=== PATIENT | female | born 1965 | race Caucasian/White ===

== ENCOUNTER 2019-11-05 20:30 | Inpatient (IN) | payer BC ==
[~2019-11-05] VITALS: Ht 175.3 cm; Wt 83.6 kg
[~2019-11-05 20:30] MED LIST: AMIT50TA PO; CARV25TA2 PO; DOCU-109 PO; Oxycodone Hcl/Acetaminophen PO; TRAM-48 PO; [UNRECOGNIZED DRUG - REMARK]; benicar; topamax
[2019-11-05 20:35] VITALS: BP 188/100
[2019-11-05] MEDS ORDERED: LOSA25TA54 PO (21:23)
--- NOTE | 2019-11-05 21:30 | NUR ---
Pt was transferred from [place] with c/o RUE weakness and dysphagia. Pt stated having hallucinations s/p colonoscopy yesterday, hallucinations stopped but pt is still having problems with speak and RUE weakness. Pt is A/Ox4, SR on telemetry, VSS, up SBA, gait unsteady, told pt to use call light when needing restroom. H&P completed, pts home medications restarted, spoke with admitting physician, Dr. Glez, orders received. Call light within reach, bed in low/locked position, will continue to monitor.
[2019-11-05] MEDS ORDERED: HYDR20VI5 IJ (21:33)
[2019-11-05] MEDS ORDERED: 0.9 % SODIUM CHLORIDE 10 ML DISP.SYRIN. IV PRN (21:45)
[2019-11-05] MEDS ORDERED: ONDANSETRON PF 4 MG/2 ML VIAL. IVP PRN (21:45)
[2019-11-05] MEDS: IV NORMAL SALINE 1000ML BAG 1,000 ML IV SCH (22:00)
[2019-11-05] MEDS: AMITRIPTYLINE HCL 25 MG TABLET. PO SCH (22:08)
[2019-11-05] MEDS: LOSARTAN POTASSIUM 25 MG TABLET. PO SCH (22:09)
[2019-11-05] MEDS: traMADol 50 MG TABLET PO PRN (22:10)
[2019-11-05 23:00] VITALS: BP 152/98
[2019-11-06 03:00] VITALS: BP 146/92
[2019-11-06 04:26] LABS: BASO % 1 % (0-3); EOS # 0.1 x10^3/uL (0.0-0.7); EOS % 4 % (0-3); HEMATOCRIT 33.9 % (36.0-47.0); HEMOGLOBIN 12.2 g/dL (12.0-15.5); LYMPH # 0.8 x10^3/uL (1.0-4.8); LYMPH % 28 % (24-48); MEAN CORPUSCULAR HEMOGLOBIN 30 pg (25-35); MEAN CORPUSCULAR HGB CONC 36 g/dL (31-37); MEAN CORPUSCULAR VOLUME 83 fL (79-100); MONO # 0.3 x10^3/uL (0.0-1.1); MONO % 9 % (0-9); NEUT # 1.7 x10^3/uL (1.8-7.7); NEUT % 59 % (31-73); PLATELET COUNT 80 x10^3/uL (140-400); RED BLOOD COUNT 4.06 x10^6/uL (3.50-5.40); RED CELL DISTRIBUTION WIDTH 14.6 % (11.5-14.5); WHITE BLOOD COUNT 2.9 x10^3/uL (4.0-11.0)
[2019-11-06 04:49] LABS: ALBUMIN 3.3 g/dL (3.4-5.0); ALBUMIN/GLOBULIN RATIO 0.8 (1.0-1.7); CALCIUM 8.6 mg/dL (8.5-10.1); GFR 57.4; POTASSIUM 3.4 mmol/L (3.5-5.1); TOTAL BILIRUBIN 0.7 mg/dL (0.2-1.0); TOTAL PROTEIN 7.6 g/dL (6.4-8.2)
[2019-11-06 07:00] VITALS: BP 134/85
[2019-11-06] MEDS: IV NORMAL SALINE 1000ML BAG 1,000 ML IV SCH (08:00)
[2019-11-06] MEDS: traMADol 50 MG TABLET PO PRN ×2 (08:18→21:45)
[2019-11-06] MEDS ORDERED: ASPIRIN RECTAL 300 MG SUPP. PR PRN (09:00)
[2019-11-06] MEDS ORDERED: ACETAMINOPHEN 650 MG SUPP.RECT. PR PRN (09:00)
[2019-11-06] MEDS ORDERED: LOSARTAN POTASSIUM 25 MG TABLET. PO SCH (09:00)
[2019-11-06] MEDS ORDERED: ACETAMINOPHEN 325 MG TABLET. PO PRN (09:00)
[2019-11-06] MEDS: ASPIRIN ENTERIC COATED 325 MG TABLET.DR. PO SCH (09:05)
[2019-11-06 11:00] VITALS: BP 128/89
--- NOTE | 2019-11-06 11:49 | PDOC2 ---
NEUROLOGY CONSULT Date of Admission Date of Admission DATE: 11/06/19 TIME: 11:42 Reason for Consult Reason for Consult: Altered mental status, possible stroke Referring Physician Referring Physician: Dr. Glez Source Source: Chart review, Patient History of Present Illness History of Present Illness The patient is a 54-year-old right-handed female who had a colonoscopy on 11/03 and when she gets home she did not feel right. She had some headaches and does have a history of migraines. She felt like she was seeing shades of green and blue and also having hallucinations. She felt like she had fevers and chills throughout the night. She woke up yesterday morning with right hemiparesis which is now getting better. She also had some more headache. There is no prior history of stroke, seizure, or head injury. Past Medical History Cardiovascular: HTN CENTRAL NERVOUS SYSTEM: Migraine Hepatobiliary: Cirrhosis, Hep A/B/C (C) Rheumatologic: Other (Lupus) Renal/: Other ( uterine prolapse) Past Surgical History Past Surgical History: Appendectomy Family History Family History: Cancer, CVA Social History Social History Single, quit using alcohol and tobacco, unemployed Current Medications Current Medications Current Medications Losartan Potassium (Cozaar) 25 mg DAILY PO ; Start 11/06/19 at 09:00; Stop 11/05/19 at 21:55; Status DC Tramadol HCl (Ultram) 50 mg PRN Q6HRS PRN PO MODERATE PAIN 4-6 Last administered on 11/06/19at 08:18; Start 11/05/19 at 21:45 Amitriptyline HCl (Elavil) 50 mg QHS PO Last administered on 11/05/19at 22:08; Start 11/05/19 at 22:00 Sodium Chloride (Normal Saline Flush) 3 ml PRN DAILY PRN IV AFTER MEDS AND BLOOD DRAWS; Start 11/05/19 at 21:45 Ondansetron HCl (Zofran) 4 mg PRN Q6HRS PRN IVP NAUSEA/VOMITING 1ST CHOICE; Start 11/05/19 at 21:45 Sodium Chloride 1,000 ml @ 100 mls/hr Q10H IV Last administered on 11/05/19at 22:00; Start 11/05/19 at 22:00; Stop 11/06/19 at 09:20; Status DC Losartan Potassium (Cozaar) 25 mg HS PO Last administered on 11/05/19at 22:09; Start 11/05/19 at 22:00 Acetaminophen (Tylenol) 650 mg PRN Q6HRS PRN PO TEMP > 100.4F; Start 11/06/19 at 09:00 Acetaminophen (Tylenol Supp) 650 mg PRN Q4HRS PRN DC TEMP > 100.4F; Start 11/06/19 at 09:00 Aspirin (Ecotrin) 325 mg DAILYWBKFT PO Last administered on 11/06/19at 09:05; Start 11/06/19 at 09:00 Aspirin (Aspirin Rectal Supp) 300 mg PRN DAILY PRN DC IF UNABLE TO TAKE PO; Start 11/06/19 at 09:00 Active Scripts Active Reported Hydralazine Hcl 20 Mg/1 Ml Vial 10 Mg IJ PRN Q4HRS PRN Losartan Potassium (Losartan Potassium) 25 Mg Tablet 25 Mg PO DAILY Ultram (Tramadol Hcl) 50 Mg Tablet 50 Mg PO Q6H PRN Amitriptyline Hcl 50 Mg Tablet 50 Mg PO QHS Allergies Allergies: Coded Allergies: No Known Drug Allergies (Unverified , 01/11/14) ROS Review of System Negative for fever, chills, weight loss, shortness of breath, chest pain, indigestion, hematochezia, melena, and dysuria. Full 14-point review of systems is negative. Physical Exam Physical Examination General: Well-developed, well-nourished white female in no acute distress HEENT: Normocephalic andatraumatic. Tympanic membranes clear.Temporal arteriespulsatile and nontender.Fundoscopic exam unremarkable Neck: Supple without bruit, no meningismus Musculoskeletal: Stability:see neurologic. Gait exam:see neurologic. Tone:see neurologic.Strength:see neurologic. Neurological: Mental Status:intact, orientation, memory, attention span/concentration, language, fund of knowledge normal. Cranial Nerves:Pupils equal and reactive to light, extraocular movements areintact, visual polo are full to confrontation. Facial sensation is normal. There is no facial asymmetry. Vestibulo-ocular reflex is intact. Palate elevates and tongue protrudes in midline. All other cranial related problems are negative except as mentioned before.Reflexes:2+ and symmetric with flexor plantar responses. Motor: Give way right arm weakness without pronator drift, 5/5 strength with normal tone and bulk. Coordination:Finger-nose finger and [id number] testing are normal. Rapid alternating movements and fine finger movements are intact. Gait:Normal, including tandem. Sensory:Normal pinprick, vibration, light touch, proprioception. Vitals VITALS Vital Signs Date Time Temp Pulse Resp B/P (MAP) Pulse Ox O2 Delivery O2 Flow Rate FiO2 11/06/19 08:00 Room Air 11/06/19 07:00 97.6 80 16 134/85 (101) 91 97.6 Labs Labs Laboratory Tests Test 11/06/19 03:45 White Blood Count 2.9 x10^3/uL (4.0-11.0) Red Blood Count 4.06 x10^6/uL (3.50-5.40) Hemoglobin 12.2 g/dL (12.0-15.5) Hematocrit 33.9 % (36.0-47.0) Mean Corpuscular Volume 83 fL (79-100) Mean Corpuscular Hemoglobin 30 pg (25-35) Mean Corpuscular Hemoglobin Concent 36 g/dL (31-37) Red Cell Distribution Width 14.6 % (11.5-14.5) Platelet Count 80 x10^3/uL (140-400) Neutrophils (%) (Auto) 59 % (31-73) Lymphocytes (%) (Auto) 28 % (24-48) Monocytes (%) (Auto) 9 % (0-9) Eosinophils (%) (Auto) 4 % (0-3) Basophils (%) (Auto) 1 % (0-3) Neutrophils # (Auto) 1.7 x10^3/uL (1.8-7.7) Lymphocytes # (Auto) 0.8 x10^3/uL (1.0-4.8) Monocytes # (Auto) 0.3 x10^3/uL (0.0-1.1) Eosinophils # (Auto) 0.1 x10^3/uL (0.0-0.7) Basophils # (Auto) 0.0 x10^3/uL (0.0-0.2) Sodium Level 140 mmol/L (136-145) Potassium Level 3.4 mmol/L (3.5-5.1) Chloride Level 104 mmol/L (98-107) Carbon Dioxide Level 25 mmol/L (21-32) Anion Gap 11 (6-14) Blood Urea Nitrogen 16 mg/dL (7-20) Creatinine 1.0 mg/dL (0.6-1.0) Estimated GFR (Cockcroft-Gault) 57.4 BUN/Creatinine Ratio 16 (6-20) Glucose Level 96 mg/dL (70-99) Calcium Level 8.6 mg/dL (8.5-10.1) Total Bilirubin 0.7 mg/dL (0.2-1.0) Aspartate Amino Transf (AST/SGOT) 27 U/L (15-37) Alanine Aminotransferase (ALT/SGPT) 15 U/L (14-59) Alkaline Phosphatase 88 U/L (46-116) Total Protein 7.6 g/dL (6.4-8.2) Albumin 3.3 g/dL (3.4-5.0) Albumin/Globulin Ratio 0.8 (1.0-1.7) Laboratory Tests Test 11/06/19 03:45 White Blood Count 2.9 x10^3/uL (4.0-11.0) Red Blood Count 4.06 x10^6/uL (3.50-5.40) Hemoglobin 12.2 g/dL (12.0-15.5) Hematocrit 33.9 % (36.0-47.0) Mean Corpuscular Volume 83 fL (79-100) Mean Corpuscular Hemoglobin 30 pg (25-35) Mean Corpuscular Hemoglobin Concent 36 g/dL (31-37) Red Cell Distribution Width 14.6 % (11.5-14.5) Platelet Count 80 x10^3/uL (140-400) Neutrophils (%) (Auto) 59 % (31-73) Lymphocytes (%) (Auto) 28 % (24-48) Monocytes (%) (Auto) 9 % (0-9) Eosinophils (%) (Auto) 4 % (0-3) Basophils (%) (Auto) 1 % (0-3) Neutrophils # (Auto) 1.7 x10^3/uL (1.8-7.7) Lymphocytes # (Auto) 0.8 x10^3/uL (1.0-4.8) Monocytes # (Auto) 0.3 x10^3/uL (0.0-1.1) Eosinophils # (Auto) 0.1 x10^3/uL (0.0-0.7) Basophils # (Auto) 0.0 x10^3/uL (0.0-0.2) Sodium Level 140 mmol/L (136-145) Potassium Level 3.4 mmol/L (3.5-5.1) Chloride Level 104 mmol/L (98-107) Carbon Dioxide Level 25 mmol/L (21-32) Anion Gap 11 (6-14) Blood Urea Nitrogen 16 mg/dL (7-20) Creatinine 1.0 mg/dL (0.6-1.0) Estimated GFR (Cockcroft-Gault) 57.4 BUN/Creatinine Ratio 16 (6-20) Glucose Level 96 mg/dL (70-99) Calcium Level 8.6 mg/dL (8.5-10.1) Total Bilirubin 0.7 mg/dL (0.2-1.0) Aspartate Amino Transf (AST/SGOT) 27 U/L (15-37) Alanine Aminotransferase (ALT/SGPT) 15 U/L (14-59) Alkaline Phosphatase 88 U/L (46-116) Total Protein 7.6 g/dL (6.4-8.2) Albumin 3.3 g/dL (3.4-5.0) Albumin/Globulin Ratio 0.8 (1.0-1.7) Images Images CT Head without IV contrast There is no evidence of hemorrhage, mass or extra-axial fluid collection. Peacock-white differentiation is maintained with no evidence of edema. There is no mass effect or shift of the intracranial structures. The ventricles, basilar cisterns and cortical sulci are normal in size and configuration for the patients stated age. The cerebellum and brainstem are unremarkable. The calvarium demonstrates no evidence of fracture or focal lesion. There is normal aeration of the visualized paranasal sinuses and mastoid air cells. The visualized portions of the orbits are normal. Atherosclerotic calcifications of the intracranial internal carotid arteries is seen. IMPRESSION: No evidence for acute intracranial process. Assessment/Plan Assessment/Plan Impression: Strange symptoms arising from disparate parts of the brain, visual symptoms, hallucinations, confusion, and then right-sided weakness, but on exam she has no facial involvement, no pronator drift, and gait is not consistent with any type of hemiparesis. I wonder about a reaction to the colonoscopy anesthesia on top of migraine phenomenon Recommendation: Stroke workup ordered including MRI of the brain, echocardiogram, carotid Doppler studies Aspirin Check lipids Rehabilitation screening Aim for discharge as soon as later today if tests are negative. Thank you for letting me help with the patient's care. RAPHAEL CASEY MD Nov 06, 2019 11:49
--- NOTE | 2019-11-06 12:12 | PDOC1 ---
History and Physical Date of Admission: Date of Admission DATE: 11/06/19 TIME: 12:09 Chief Complaint: Problems: (1) Closed fracture of surgical neck of humerus (2) Systemic lupus erythematosus Chief Complain: Stroke symptoms right-sided weakness slurred speech recent colonoscopy History of Present Illness: HPI: This is a middle-aged white female who had a colonoscopy 3 days ago Now she is developing slurred speech and right-sided weakness Is been occurring basically pretty much since she got home Rated at 7 out of 10 She has associated anxiety She increased her home meds without and help I discussed the case with the ER physician Were concerned she could be having a stroke although her CAT scan was initially negative We did call Dr. Enriquez he would like the patient admitted and regular check an MRI as well Past Medical/Surgical History: PMH/PSH: Cardiovascular: HTN CENTRAL NERVOUS SYSTEM: Migraine Hepatobiliary: Cirrhosis, Hep A/B/C (C) Rheumatologic: Other (Lupus) Renal/: Other ( uterine prolapse) Past Surgical History Past Surgical History: Appendectomy Allergies: Allergies: Coded Allergies: No Known Drug Allergies (Unverified , 01/11/14) Family History: Family History: Cancer and strokes Social History: Social History: She does not drink smoke or take drugs She works at [employer] Current Medications: Current Medications Current Medications Losartan Potassium (Cozaar) 25 mg DAILY PO ; Start 11/06/19 at 09:00; Stop 11/05/19 at 21:55; Status DC Tramadol HCl (Ultram) 50 mg PRN Q6HRS PRN PO MODERATE PAIN 4-6 Last administered on 11/06/19at 08:18; Start 11/05/19 at 21:45 Amitriptyline HCl (Elavil) 50 mg QHS PO Last administered on 11/05/19at 22:08; Start 11/05/19 at 22:00 Sodium Chloride (Normal Saline Flush) 3 ml PRN DAILY PRN IV AFTER MEDS AND BLOOD DRAWS; Start 11/05/19 at 21:45 Ondansetron HCl (Zofran) 4 mg PRN Q6HRS PRN IVP NAUSEA/VOMITING 1ST CHOICE; Start 11/05/19 at 21:45 Sodium Chloride 1,000 ml @ 100 mls/hr Q10H IV Last administered on 11/05/19at 22:00; Start 11/05/19 at 22:00; Stop 11/06/19 at 09:20; Status DC Losartan Potassium (Cozaar) 25 mg HS PO Last administered on 11/05/19at 22:09; Start 11/05/19 at 22:00 Acetaminophen (Tylenol) 650 mg PRN Q6HRS PRN PO TEMP > 100.4F; Start 11/06/19 at 09:00 Acetaminophen (Tylenol Supp) 650 mg PRN Q4HRS PRN SD TEMP > 100.4F; Start 11/05 at 09:00 Aspirin (Ecotrin) 325 mg DAILYWBKFT PO Last administered on 11/06/19at 09:05; Start 11/06/19 at 09:00 Aspirin (Aspirin Rectal Supp) 300 mg PRN DAILY PRN SD IF UNABLE TO TAKE PO; Start 11/06/19 at 09:00 Active Scripts Active Reported Hydralazine Hcl 20 Mg/1 Ml Vial 10 Mg IJ PRN Q4HRS PRN Losartan Potassium (Losartan Potassium) 25 Mg Tablet 25 Mg PO DAILY Ultram (Tramadol Hcl) 50 Mg Tablet 50 Mg PO Q6H PRN Amitriptyline Hcl 50 Mg Tablet 50 Mg PO QHS ROS: Review of Systems Review of System REVIEW OF SYSTEMS: GENERAL: Denies weakness SKIN: No bruising, hair changes or rashes. EYES: No blurred, double or loss of vision. NOSE AND THROAT: No history of nosebleeds, hoarseness or sore throat. HEART: No history of palpitations, chest pain or shortness of breath on exertion. LUNGS: Denies cough, hemoptysis, wheezing or shortness of breath. GASTROINTESTINAL: Denies changes in appetite, nausea, vomiting, diarrhea or constipation. GENITOURINARY: No history of frequency, urgency, hesitancy or nocturia. NEUROLOGIC: Complains of right-sided weakness and slurred speech PSYCHIATRIC: No history of panic, anxiety or depression. ENDOCRINE: No history of heat or cold intolerance, polyuria or polydipsia. EXTREMITIES: Denies joint pain, pain on walking or stiffness. Physical Exam: Vital Signs: Vital Signs Date Time Temp Pulse Resp B/P (MAP) Pulse Ox O2 Delivery O2 Flow Rate FiO2 11/06/19 11:00 98.1 86 18 128/89 (102) 93 Room Air 98.1 Physcial Exam: GEN: No apparent distress. Alert and oriented HEENT: Normal cephalic, atraumatic, external auditory canals are patent EYES: Extraocular muscles are intact, pupil are equally round and reactive to light and accommodation MUSCULOSKELETAL: Well developed , well nourished, good range of motion ENDOCRINE: No thyromegaly was palpated LYMPHATICS: No cervical chain or axillary nodes were noted HEMATOPOIETIC: No bruising NECK: Supple, no JVD, no thyromegaly was noted LUNGS: Clear to auscultation in all lung polo without rhonchi or wheezing HEART: RRR, S!, S2 present. Peripheral pulses intact, no obvious murmurs noted ABDOMEN: Soft, nontender. Positive bowel sounds, no organomegaly, normal bowel sounds EXTREMITIES: Without clubbing, cyanosis, or edema. Pedal pulses intact. 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 on the right about 1 out of 5 the left is 3 out of 5 she also has slurred speech Psychiatric; she seems a little anxious SKIN: No ulcerations or rashes, good skin turgor, no jaundice VASCULAR: Good capillary refill, neurovascular bundle appears to be intact Labs: Labs: Laboratory Tests Test 11/06/19 03:45 White Blood Count 2.9 x10^3/uL (4.0-11.0) Red Blood Count 4.06 x10^6/uL (3.50-5.40) Hemoglobin 12.2 g/dL (12.0-15.5) Hematocrit 33.9 % (36.0-47.0) Mean Corpuscular Volume 83 fL (79-100) Mean Corpuscular Hemoglobin 30 pg (25-35) Mean Corpuscular Hemoglobin Concent 36 g/dL (31-37) Red Cell Distribution Width 14.6 % (11.5-14.5) Platelet Count 80 x10^3/uL (140-400) Neutrophils (%) (Auto) 59 % (31-73) Lymphocytes (%) (Auto) 28 % (24-48) Monocytes (%) (Auto) 9 % (0-9) Eosinophils (%) (Auto) 4 % (0-3) Basophils (%) (Auto) 1 % (0-3) Neutrophils # (Auto) 1.7 x10^3/uL (1.8-7.7) Lymphocytes # (Auto) 0.8 x10^3/uL (1.0-4.8) Monocytes # (Auto) 0.3 x10^3/uL (0.0-1.1) Eosinophils # (Auto) 0.1 x10^3/uL (0.0-0.7) Basophils # (Auto) 0.0 x10^3/uL (0.0-0.2) Sodium Level 140 mmol/L (136-145) Potassium Level 3.4 mmol/L (3.5-5.1) Chloride Level 104 mmol/L (98-107) Carbon Dioxide Level 25 mmol/L (21-32) Anion Gap 11 (6-14) Blood Urea Nitrogen 16 mg/dL (7-20) Creatinine 1.0 mg/dL (0.6-1.0) Estimated GFR (Cockcroft-Gault) 57.4 BUN/Creatinine Ratio 16 (6-20) Glucose Level 96 mg/dL (70-99) Calcium Level 8.6 mg/dL (8.5-10.1) Total Bilirubin 0.7 mg/dL (0.2-1.0) Aspartate Amino Transf (AST/SGOT) 27 U/L (15-37) Alanine Aminotransferase (ALT/SGPT) 15 U/L (14-59) Alkaline Phosphatase 88 U/L (46-116) Total Protein 7.6 g/dL (6.4-8.2) Albumin 3.3 g/dL (3.4-5.0) Albumin/Globulin Ratio 0.8 (1.0-1.7) Laboratory Tests Test 11/06/19 03:45 White Blood Count 2.9 x10^3/uL (4.0-11.0) Red Blood Count 4.06 x10^6/uL (3.50-5.40) Hemoglobin 12.2 g/dL (12.0-15.5) Hematocrit 33.9 % (36.0-47.0) Mean Corpuscular Volume 83 fL (79-100) Mean Corpuscular Hemoglobin 30 pg (25-35) Mean Corpuscular Hemoglobin Concent 36 g/dL (31-37) Red Cell Distribution Width 14.6 % (11.5-14.5) Platelet Count 80 x10^3/uL (140-400) Neutrophils (%) (Auto) 59 % (31-73) Lymphocytes (%) (Auto) 28 % (24-48) Monocytes (%) (Auto) 9 % (0-9) Eosinophils (%) (Auto) 4 % (0-3) Basophils (%) (Auto) 1 % (0-3) Neutrophils # (Auto) 1.7 x10^3/uL (1.8-7.7) Lymphocytes # (Auto) 0.8 x10^3/uL (1.0-4.8) Monocytes # (Auto) 0.3 x10^3/uL (0.0-1.1) Eosinophils # (Auto) 0.1 x10^3/uL (0.0-0.7) Basophils # (Auto) 0.0 x10^3/uL (0.0-0.2) Sodium Level 140 mmol/L (136-145) Potassium Level 3.4 mmol/L (3.5-5.1) Chloride Level 104 mmol/L (98-107) Carbon Dioxide Level 25 mmol/L (21-32) Anion Gap 11 (6-14) Blood Urea Nitrogen 16 mg/dL (7-20) Creatinine 1.0 mg/dL (0.6-1.0) Estimated GFR (Cockcroft-Gault) 57.4 BUN/Creatinine Ratio 16 (6-20) Glucose Level 96 mg/dL (70-99) Calcium Level 8.6 mg/dL (8.5-10.1) Total Bilirubin 0.7 mg/dL (0.2-1.0) Aspartate Amino Transf (AST/SGOT) 27 U/L (15-37) Alanine Aminotransferase (ALT/SGPT) 15 U/L (14-59) Alkaline Phosphatase 88 U/L (46-116) Total Protein 7.6 g/dL (6.4-8.2) Albumin 3.3 g/dL (3.4-5.0) Albumin/Globulin Ratio 0.8 (1.0-1.7) Assessment/Plan Assessment/Plan Stroke symptoms Plan Consult neurology MRI brain Daily aspirin Home meds DVT prophylaxis Full code PT OT and speech therapy Long-term prognosis guarded Justicifation of Admission Dx: Justifications for Admission: Justification of Admission Dx: Yes Stroke - Ischemic: Stroke-Ischemic EJ GONZALES III DO Nov 06, 2019 12:12
[2019-11-06] MEDS ORDERED: POTASSIUM CHLORIDE 20 MEQ TABLET.ER. PO ONE (12:30)
--- NOTE | 2019-11-06 13:34 | NUR ---
SS following for discharge planning. SS reviewed pt chart and discussed with pt RN. Pt is from home with son and is currently on room air. PT/OT ordered. SS will continue to follow for discharge planning.
--- NOTE | 2019-11-06 14:54 | RAD ---
DOPPLER CAROTID BILAT History: Reason: right weakness / Spl. Instructions: / History: COMPARISON: None Technique: Duplex sonography of the cervical portion of both carotid arteries was performed. Real-time grayscale, color flow Doppler, and Doppler spectral waveform analysis is performed. PQRS Compliance Statement - Stenosis calculations for CT, MR and conventional angiography are based upon measurement of the distal ICA diameter in accordance with the NASCET methodology. Stenosis calculations for carotid ultrasound studies are derived from validated velocity criteria which are known to correlate with the NASCET methodology. Findings: Right side: Peak systolic flow velocity of the CCA is 77 cm/sec. Peak systolic flow velocity of the ICA is 85 cm/sec. The ICA/CCA ratio is 1.1. Peak end diastolic flow velocity of the ICA is 28 cm/sec. The peak systolic velocity of the ECA is 66 cm/sec. No significant plaque formation is identified. Tortuosity of the internal carotid arteries. Left side: Peak systolic flow velocity of the CCA is 86 cm/sec. Peak systolic flow velocity of the ICA is 82 cm/sec. The ICA/CCA ratio is 00.. Peak end diastolic flow velocity of the ICA is 0.95 cm/sec. Peak systolic flow velocity of the ECA is 71 cm/sec. No significant plaque formation is identified. Tortuosity of the internal carotid artery. Vertebral arteries: Bilateral vertebral arteries demonstrate antegrade flow. IMPRESSION: 1. No hemodynamically significant internal carotid artery stenosis. Electronically signed by: Ziggy Hopkins DO (11/06/2019 2:51 PM) [id number]
[2019-11-06 15:00] VITALS: BP 148/96
--- NOTE | 2019-11-06 15:47 | CARD ---
MR#: [id number] Date of Study: 11/06/2019 Ordering Physician: RAPHAEL CASEY, Referring Physician: RAPHAEL CASEY, Tech: Shaina Mcfarlane CARLYN APPROVED REPORT EXAM: Two-dimensional and M-mode echocardiogram with Doppler and color Doppler. Other Information Quality : Good INDICATION Right Sided Weakness 2D DIMENSIONS RVDd3.2 (2.9-3.5cm)Left Atrium(2D)3.4 (1.6-4.0cm) IVSd1.1 (0.7-1.1cm)Aortic Root(2D)3.1 (2.0-3.7cm) LVDd4.5 (3.9-5.9cm)LVOT Diameter1.9 (1.8-2.4cm) PWd0.9 (0.7-1.1cm)LVDs2.6 (2.5-4.0cm) FS (%) 30.0 %SV67.7 ml LVEF(%)60.0 (>50%) Aortic Valve AoV Peak Rickey.142.0cm/sAoV VTI25.1cm AO Peak GR.8.1mmHgLVOT Peak Rickey.109.7cm/s AO Mean GR.5mmHgAVA (VMAX)2.28cm2 ELISABET (VTI)2.60cm2 Mitral Valve MV E Wjylekir86.5cm/sMV DECEL [id number] MV A Jvrerktg81.5cm/sE/A Ratio0.7 Tricuspid Valve TR P. Myxylwih144wn/sRAP AXUXQVYB0xoJk TR Peak Gr.84xcFyTMEJ80paMo Pulmonary Vein S1 Jfycmhcd94.0cm/sD2 Qdgpbddf29.1cm/s LEFT VENTRICLE The left ventricle is normal size. There is normal left ventricular wall thickness. The left ventricu lar systolic function is normal and the ejection fraction is within normal range. The Ejection Fracti on is 55-60%. There is normal LV segmental wall motion. Transmitral Doppler flow pattern is Grade I-a bnormal relaxation pattern. RIGHT VENTRICLE The right ventricle is normal size. The right ventricular systolic function is normal. ATRIA The left atrium size is normal. The right atrium size is normal. The interatrial septum is intact wit h no evidence for an atrial septal defect or patent foramen ovale as noted on 2-D or Doppler imaging. AORTIC VALVE The aortic valve is calcified but opens well. Doppler and Color Flow revealed no significant aortic r egurgitation. There is no significant aortic valvular stenosis. MITRAL VALVE The mitral valve is normal in structure and function. There is no evidence of mitral valve prolapse. There is no mitral valve stenosis. Doppler and Color-flow revealed mild mitral regurgitation. TRICUSPID VALVE The tricuspid valve is normal in structure and function. Doppler and Color Flow revealed mild tricusp id regurgitation. The PA pressure was estimated at 29 mmHg. There is no tricuspid valve stenosis. PULMONIC VALVE The pulmonic valve is not well visualized. Doppler and Color Flow revealed trace pulmonic valvular re gurgitation. There is no pulmonic valvular stenosis. GREAT VESSELS The aortic root is normal in size. The ascending aorta is normal in size. The IVC is normal in size a nd collapses >50% with inspiration. PERICARDIAL EFFUSION There is no evidence of significant pericardial effusion. Critical Notification Critical Value: No <Conclusion> The left ventricle is normal size. The left ventricular systolic function is normal and the ejection fraction is within normal range. The Ejection Fraction is 55-60%. The interatrial septum is intact with no evidence for an atrial septal defect or patent foramen ovale as noted on 2-D or Doppler imaging. Doppler and Color Flow revealed no significant aortic regurgitation. There is no significant aortic valvular stenosis. Doppler and Color-flow revealed mild mitral regurgitation. Doppler and Color Flow revealed mild tricuspid regurgitation. The PA pressure was estimated at 29 mmHg. Signed by : Franki Snow MD Electronically Approved : 11/06/2019 15:47:25
--- NOTE | 2019-11-06 16:05 | RAD ---
BRAIN W/O CONTRAST History:Reason: right weakness / Spl. Instructions: / History: Technique: Multiplanar, multi sequential MR imaging was performed of the brain without contrast. Comparison: CT November 27, 2011. MRI November 28, 2011 Findings: No acute infarct. No intracranial hemorrhage. No mass effect. No hydrocephalus. Chronic superior cerebellar lacunar infarcts. Cavum septum pellucidum. Mild foci of FLAIR hyperintensity within the hemispheric white matter, mildly progressed compared to prior. Imaged orbits are unremarkable. Complete opacification of the right maxillary sinus with atelectatic appearance. Partial opacification the right frontal sinus. Minimal right mastoid fluid. Impression: 1. No acute intracranial abnormality. 2. Mildly progressed nonspecific white matter changes, can be seen in normal individuals although may relate to sequelae of chronic microvascular ischemia, migraine headaches or less likely demyelinating disease or vasculitis. 3. Chronic superior cerebellar infarcts. 4. Chronic appearing right maxillary sinus disease. Electronically signed by: Ziggy Hopkins DO (11/06/2019 4:02 PM) [id number]
[2019-11-06 19:00] VITALS: BP 174/92
[2019-11-06] MEDS: LOSARTAN POTASSIUM 25 MG TABLET. PO SCH (21:45)
[2019-11-06] MEDS: AMITRIPTYLINE HCL 25 MG TABLET. PO SCH (21:46)
--- NOTE | 2019-11-06 22:29 | NUR ---
pt first got bp of183/109 after i gave iv labetol. will rechick lcrn
[2019-11-06 23:18] VITALS: BP 167/90
[2019-11-07 00:54] LABS: CHOLESTEROL/HDL RATIO 3.7
[2019-11-07 03:00] VITALS: BP 168/71
[2019-11-07 07:00] VITALS: BP 139/80
[2019-11-07] MEDS: ASPIRIN ENTERIC COATED 325 MG TABLET.DR. PO SCH (08:44)
[2019-11-07 10:26] VITALS: BP 145/84
--- NOTE | 2019-11-07 11:24 | NUR ---
SS following up with discharge planning. SS reviewed pt chart and discussed with pt RN. Pt is currently on room air. PT recommended home. SS will continue to follow for discharge planning.
--- NOTE | 2019-11-07 13:07 | PDOC ---
PROGRESS NOTES Assessment Strange symptoms arising from disparate parts of the brain, visual symptoms, hallucinations, confusion, and then right-sided weakness, but on exam she has no facial involvement, no pronator drift, and gait is not consistent with any type of hemiparesis. I wonder about a reaction to the colonoscopy anesthesia on top of migraine phenomenon. Workup is negative Plan Aspirin Okay for discharge Follow-up with me as needed. Subjective No complaints Objective Vital Signs Date Time Temp Pulse Resp B/P (MAP) Pulse Ox O2 Delivery O2 Flow Rate FiO2 11/07/19 10:26 98.4 82 17 145/84 (104) 93 Room Air 98.4 Intake and Output 11/07/19 07:00 Intake Total 520 ml Balance 520 ml Intake Oral 520 ml # Voids 2 PHYSICAL EXAM Alert. Oriented to time, place and person. PERRL. EOMI. CN: no focal findings. Muscle tone: normal. Muscle strength: 5/5 DTR: 2+ Plantar reflex: Flexor Gait: Normal. Sensory exam: no abnormal findings. No cerebellar signs elicited. Review of Relevant I have reviewed the following items juliette (where applicable) has been applied. Labs Laboratory Tests Test 11/06/19 03:45 White Blood Count 2.9 x10^3/uL (4.0-11.0) Red Blood Count 4.06 x10^6/uL (3.50-5.40) Hemoglobin 12.2 g/dL (12.0-15.5) Hematocrit 33.9 % (36.0-47.0) Mean Corpuscular Volume 83 fL (79-100) Mean Corpuscular Hemoglobin 30 pg (25-35) Mean Corpuscular Hemoglobin Concent 36 g/dL (31-37) Red Cell Distribution Width 14.6 % (11.5-14.5) Platelet Count 80 x10^3/uL (140-400) Neutrophils (%) (Auto) 59 % (31-73) Lymphocytes (%) (Auto) 28 % (24-48) Monocytes (%) (Auto) 9 % (0-9) Eosinophils (%) (Auto) 4 % (0-3) Basophils (%) (Auto) 1 % (0-3) Neutrophils # (Auto) 1.7 x10^3/uL (1.8-7.7) Lymphocytes # (Auto) 0.8 x10^3/uL (1.0-4.8) Monocytes # (Auto) 0.3 x10^3/uL (0.0-1.1) Eosinophils # (Auto) 0.1 x10^3/uL (0.0-0.7) Basophils # (Auto) 0.0 x10^3/uL (0.0-0.2) Sodium Level 140 mmol/L (136-145) Potassium Level 3.4 mmol/L (3.5-5.1) Chloride Level 104 mmol/L (98-107) Carbon Dioxide Level 25 mmol/L (21-32) Anion Gap 11 (6-14) Blood Urea Nitrogen 16 mg/dL (7-20) Creatinine 1.0 mg/dL (0.6-1.0) Estimated GFR (Cockcroft-Gault) 57.4 BUN/Creatinine Ratio 16 (6-20) Glucose Level 96 mg/dL (70-99) Calcium Level 8.6 mg/dL (8.5-10.1) Total Bilirubin 0.7 mg/dL (0.2-1.0) Aspartate Amino Transf (AST/SGOT) 27 U/L (15-37) Alanine Aminotransferase (ALT/SGPT) 15 U/L (14-59) Alkaline Phosphatase 88 U/L (46-116) Total Protein 7.6 g/dL (6.4-8.2) Albumin 3.3 g/dL (3.4-5.0) Albumin/Globulin Ratio 0.8 (1.0-1.7) Triglycerides Level 90 mg/dL (0-150) Cholesterol Level 126 mg/dL (0-200) LDL Cholesterol, Calculated 74 mg/dL (0-100) VLDL Cholesterol, Calculated 18 mg/dL (0-40) Non-HDL Cholesterol Calculated 92 mg/dL (0-129) HDL Cholesterol 34 mg/dL (40-60) Cholesterol/HDL Ratio 3.7 Medications Current Medications Losartan Potassium (Cozaar) 25 mg DAILY PO ; Start 11/06/19 at 09:00; Stop 11/05/19 at 21:55; Status DC Tramadol HCl (Ultram) 50 mg PRN Q6HRS PRN PO MODERATE PAIN 4-6 Last administered on 11/06/19at 21:45; Start 11/05/19 at 21:45 Amitriptyline HCl (Elavil) 50 mg QHS PO Last administered on 11/06/19at 21:46; Start 11/05/19 at 22:00 Sodium Chloride (Normal Saline Flush) 3 ml PRN DAILY PRN IV AFTER MEDS AND BLOOD DRAWS; Start 11/05/19 at 21:45 Ondansetron HCl (Zofran) 4 mg PRN Q6HRS PRN IVP NAUSEA/VOMITING 1ST CHOICE; Start 11/05/19 at 21:45 Sodium Chloride 1,000 ml @ 100 mls/hr Q10H IV Last administered on 11/05/19at 22:00; Start 11/05/19 at 22:00; Stop 11/06/19 at 09:20; Status DC Losartan Potassium (Cozaar) 25 mg HS PO Last administered on 11/06/19at 21:45; Start 11/05/19 at 22:00 Acetaminophen (Tylenol) 650 mg PRN Q6HRS PRN PO TEMP > 100.4F; Start 11/06/19 at 09:00 Acetaminophen (Tylenol Supp) 650 mg PRN Q4HRS PRN AL TEMP > 100.4F; Start 11/06/19 at 09:00 Aspirin (Ecotrin) 325 mg DAILYWBKFT PO Last administered on 11/07/19at 08:44; Start 11/06/19 at 09:00 Aspirin (Aspirin Rectal Supp) 300 mg PRN DAILY PRN AL IF UNABLE TO TAKE PO; Start 11/06/19 at 09:00 Potassium Chloride (Klor-Con) 40 meq 1X ONCE PO Last administered on 11/06/19at 13:09; Start 11/06/19 at 12:30; Stop 11/06/19 at 12:33; Status DC Active Scripts Active Reported Hydralazine Hcl 20 Mg/1 Ml Vial 10 Mg IJ PRN Q4HRS PRN Losartan Potassium (Losartan Potassium) 25 Mg Tablet 25 Mg PO DAILY Ultram (Tramadol Hcl) 50 Mg Tablet 50 Mg PO Q6H PRN Amitriptyline Hcl 50 Mg Tablet 50 Mg PO QHS Vitals/I & O Vital Sign - Last 24 Hours 11/06/19 11/06/19 11/06/19 11/06/19 15:00 19:00 20:00 21:45 Temp 97.8 97.4 97.8 97.4 Pulse 85 87 87 Resp 16 18 B/P (MAP) 148/96 (113) 174/92 (119) 174/92 Pulse Ox 96 96 O2 Delivery Room Air Room Air Room Air 11/06/19 11/06/19 11/07/19 11/07/19 22:45 23:18 03:00 07:00 Temp 97.6 97.4 97.5 97.6 97.4 97.5 Pulse 82 75 76 Resp 18 17 17 B/P (MAP) 167/90 (115) 168/71 (103) 139/80 (99) Pulse Ox 98 98 97 93 O2 Delivery Room Air Room Air Room Air Room Air 11/07/19 11/07/19 08:00 10:26 Temp 98.4 98.4 Pulse 82 Resp 17 B/P (MAP) 145/84 (104) Pulse Ox 93 O2 Delivery Room Air Room Air Intake and Output 11/06/19 11/06/19 11/07/19 15:00 23:00 07:00 Intake Total 200 ml 120 ml 200 ml Balance 200 ml 120 ml 200 ml Images BRAIN W/O CONTRAST History:Reason: right weakness / Spl. Instructions: / History: Technique: Multiplanar, multi sequential MR imaging was performed of the brain without contrast. Comparison: CT November 27, 2011. MRI November 28, 2011 Findings: No acute infarct. No intracranial hemorrhage. No mass effect. No hydrocephalus. Chronic superior cerebellar lacunar infarcts. Cavum septum pellucidum. Mild foci of FLAIR hyperintensity within the hemispheric white matter, mildly progressed compared to prior. Imaged orbits are unremarkable. Complete opacification of the right maxillary sinus with atelectatic appearance. Partial opacification the right frontal sinus. Minimal right mastoid fluid. Impression: 1. No acute intracranial abnormality. 2. Mildly progressed nonspecific white matter changes, can be seen in normal individuals although may relate to sequelae of chronic microvascular ischemia, migraine headaches or less likely demyelinating disease or vasculitis. 3. Chronic superior cerebellar infarcts. 4. Chronic appearing right maxillary sinus disease. DOPPLER CAROTID BILAT History: Reason: right weakness / Spl. Instructions: / History: COMPARISON: None Technique: Duplex sonography of the cervical portion of both carotid arteries was performed. Real-time grayscale, color flow Doppler, and Doppler spectral waveform analysis is performed. PQRS Compliance Statement - Stenosis calculations for CT, MR and conventional angiography are based upon measurement of the distal ICA diameter in accordance with the NASCET methodology. Stenosis calculations for carotid ultrasound studies are derived from validated velocity criteria which are known to correlate with the NASCET methodology. Findings: Right side: Peak systolic flow velocity of the CCA is 77 cm/sec. Peak systolic flow velocity of the ICA is 85 cm/sec. The ICA/CCA ratio is 1.1. Peak end diastolic flow velocity of the ICA is 28 cm/sec. The peak systolic velocity of the ECA is 66 cm/sec. No significant plaque formation is identified. Tortuosity of the internal carotid arteries. Left side: Peak systolic flow velocity of the CCA is 86 cm/sec. Peak systolic flow velocity of the ICA is 82 cm/sec. The ICA/CCA ratio is 00.. Peak end diastolic flow velocity of the ICA is 0.95 cm/sec. Peak systolic flow velocity of the ECA is 71 cm/sec. No significant plaque formation is identified. Tortuosity of the internal carotid artery. Vertebral arteries: Bilateral vertebral arteries demonstrate antegrade flow. IMPRESSION: 1. No hemodynamically significant internal carotid artery stenosis. Echocardiogram: LEFT VENTRICLE The left ventricle is normal size. There is normal left ventricular wall thickness. The left ventricular systolic function is normal and the ejection fraction is within normal range. The Ejection Fraction is 55-60%. There is normal LV segmental wall motion. Transmitral Doppler flow pattern is Grade I- abnormal relaxation pattern. RIGHT VENTRICLE The right ventricle is normal size. The right ventricular systolic function is normal. ATRIA The left atrium size is normal. The right atrium size is normal. The interatrial septum is intact with no evidence for an atrial septal defect or patent foramen ovale as noted on 2-D or Doppler imaging. AORTIC VALVE The aortic valve is calcified but opens well. Doppler and Color Flow revealed no significant aortic regurgitation. There is no significant aortic valvular stenosis. MITRAL VALVE The mitral valve is normal in structure and function. There is no evidence of mitral valve prolapse. There is no mitral valve stenosis. Doppler and Color-flow revealed mild mitral regurgitation. TRICUSPID VALVE The tricuspid valve is normal in structure and function. Doppler and Color Flow revealed mild tricuspid regurgitation. The PA pressure was estimated at 29 mmHg. There is no tricuspid valve stenosis. PULMONIC VALVE The pulmonic valve is not well visualized. Doppler and Color Flow revealed trace pulmonic valvular regurgitation. There is no pulmonic valvular stenosis. GREAT VESSELS The aortic root is normal in size. The ascending aorta is normal in size. The IVC is normal in size and collapses >50% with inspiration. PERICARDIAL EFFUSION There is no evidence of significant pericardial effusion. Critical Notification Critical Value: No <Conclusion> The left ventricle is normal size. The left ventricular systolic function is normal and the ejection fraction is within normal range. The Ejection Fraction is 55-60%. The interatrial septum is intact with no evidence for an atrial septal defect or patent foramen ovale as noted on 2-D or Doppler imaging. Doppler and Color Flow revealed no significant aortic regurgitation. There is no significant aortic valvular stenosis. Doppler and Color-flow revealed mild mitral regurgitation. Doppler and Color Flow revealed mild tricuspid regurgitation. The PA pressure was estimated at 29 mmHg. Justicifation of Admission Dx: Justifications for Admission: Justification of Admission Dx: Yes Stroke - Ischemic: Stroke-Ischemic RAPHAEL CASEY MD Nov 07, 2019 13:07
[2019-11-07] MEDS ORDERED: ASPI325T11 PO (14:08)
--- NOTE | 2019-11-07 14:11 | PDOC3 ---
Discharge Summary Visit Information Date of Admission: Nov 06, 2019 Date of Discharge: Nov 07, 2019 Admitting Diagnosis Comment: Stroke symptoms Final Diagnosis Stroke symptoms adverse reaction from anesthesia? Brief Hospital Course Allergies Allergies Coded Allergies Type Severity Reaction Last Updated Verified No Known Drug Allergies 01/11/14 No Vital Signs Vital Signs Date Time Temp Pulse Resp B/P (MAP) Pulse Ox O2 Delivery O2 Flow Rate FiO2 11/07/19 10:26 98.4 82 17 145/84 (104) 93 Room Air 98.4 Lab Results Laboratory Tests Test 11/06/19 03:45 White Blood Count 2.9 x10^3/uL (4.0-11.0) Red Blood Count 4.06 x10^6/uL (3.50-5.40) Hemoglobin 12.2 g/dL (12.0-15.5) Hematocrit 33.9 % (36.0-47.0) Mean Corpuscular Volume 83 fL (79-100) Mean Corpuscular Hemoglobin 30 pg (25-35) Mean Corpuscular Hemoglobin Concent 36 g/dL (31-37) Red Cell Distribution Width 14.6 % (11.5-14.5) Platelet Count 80 x10^3/uL (140-400) Neutrophils (%) (Auto) 59 % (31-73) Lymphocytes (%) (Auto) 28 % (24-48) Monocytes (%) (Auto) 9 % (0-9) Eosinophils (%) (Auto) 4 % (0-3) Basophils (%) (Auto) 1 % (0-3) Neutrophils # (Auto) 1.7 x10^3/uL (1.8-7.7) Lymphocytes # (Auto) 0.8 x10^3/uL (1.0-4.8) Monocytes # (Auto) 0.3 x10^3/uL (0.0-1.1) Eosinophils # (Auto) 0.1 x10^3/uL (0.0-0.7) Basophils # (Auto) 0.0 x10^3/uL (0.0-0.2) Sodium Level 140 mmol/L (136-145) Potassium Level 3.4 mmol/L (3.5-5.1) Chloride Level 104 mmol/L (98-107) Carbon Dioxide Level 25 mmol/L (21-32) Anion Gap 11 (6-14) Blood Urea Nitrogen 16 mg/dL (7-20) Creatinine 1.0 mg/dL (0.6-1.0) Estimated GFR (Cockcroft-Gault) 57.4 BUN/Creatinine Ratio 16 (6-20) Glucose Level 96 mg/dL (70-99) Calcium Level 8.6 mg/dL (8.5-10.1) Total Bilirubin 0.7 mg/dL (0.2-1.0) Aspartate Amino Transf (AST/SGOT) 27 U/L (15-37) Alanine Aminotransferase (ALT/SGPT) 15 U/L (14-59) Alkaline Phosphatase 88 U/L (46-116) Total Protein 7.6 g/dL (6.4-8.2) Albumin 3.3 g/dL (3.4-5.0) Albumin/Globulin Ratio 0.8 (1.0-1.7) Triglycerides Level 90 mg/dL (0-150) Cholesterol Level 126 mg/dL (0-200) LDL Cholesterol, Calculated 74 mg/dL (0-100) VLDL Cholesterol, Calculated 18 mg/dL (0-40) Non-HDL Cholesterol Calculated 92 mg/dL (0-129) HDL Cholesterol 34 mg/dL (40-60) Cholesterol/HDL Ratio 3.7 Brief Hospital Course Ms. Ware is a 54 old female who presented with the above-mentioned strokelike symptoms. The patient was seen in consultation by our neurologist who recommended continuing with the proposed work-up that included a carotid ultrasound MRI and echocardiogram. All of them were unremarkable and for details please see below on this report. Patient symptoms did not recur and she was deemed appropriate for discharge, with instructions to follow-up with her primary care physician in the outpatient setting in about 1 week. No changes were made to her medications only the addition of aspirin as recommended by Dr. Enriquez. His recommendations are greatly appreciated. Patient in good spi rits to be discharged home Physical exam Neuro: No focal deficits cranial nerves II to XII intact no motor or sensory deficit appreciated Lungs clear to auscultation with good inspiratory Cardiovascular S1-S2 regular rhythm no murmurs gallops or rubs Assessment Assessment Images BRAIN W/O CONTRAST History:Reason: right weakness / Spl. Instructions: / History: Technique: Multiplanar, multi sequential MR imaging was performed of the brain without contrast. Comparison: CT November 27, 2011. MRI November 28, 2011 Findings: No acute infarct. No intracranial hemorrhage. No mass effect. No hydrocephalus. Chronic superior cerebellar lacunar infarcts. Cavum septum pellucidum. Mild foci of FLAIR hyperintensity within the hemispheric white matter, mildly progressed compared to prior. Imaged orbits are unremarkable. Complete opacification of the right maxillary sinus with atelectatic appearance. Partial opacification the right frontal sinus. Minimal right mastoid fluid. Impression: 1. No acute intracranial abnormality. 2. Mildly progressed nonspecific white matter changes, can be seen in normal individuals although may relate to sequelae of chronic microvascular ischemia, migraine headaches or less likely demyelinating disease or vasculitis. 3. Chronic superior cerebellar infarcts. 4. Chronic appearing right maxillary sinus disease. DOPPLER CAROTID BILAT History: Reason: right weakness / Spl. Instructions: / History: COMPARISON: None Technique: Duplex sonography of the cervical portion of both carotid arteries was performed. Real-time grayscale, color flow Doppler, and Doppler spectral waveform analysis is performed. PQRS Compliance Statement - Stenosis calculations for CT, MR and conventional angiography are based upon measurement of the distal ICA diameter in accordance with the NASCET methodology. Stenosis calculations for carotid ultrasound studies are derived from validated velocity criteria which are known to correlate with the NASCET methodology. Findings: Right side: Peak systolic flow velocity of the CCA is 77 cm/sec. Peak systolic flow velocity of the ICA is 85 cm/sec. The ICA/CCA ratio is 1.1. Peak end diastolic flow velocity of the ICA is 28 cm/sec. The peak systolic velocity of the ECA is 66 cm/sec. No significant plaque formation is identified. Tortuosity of the internal carotid arteries. Left side: Peak systolic flow velocity of the CCA is 86 cm/sec. Peak systolic flow velocity of the ICA is 82 cm/sec. The ICA/CCA ratio is 00.. Peak end diastolic flow velocity of the ICA is 0.95 cm/sec. Peak systolic flow velocity of the ECA is 71 cm/sec. No significant plaque formation is identified. Tortuosity of the internal carotid artery. Vertebral arteries: Bilateral vertebral arteries demonstrate antegrade flow. IMPRESSION: 1. No hemodynamically significant internal carotid artery stenosis. Echocardiogram: LEFT VENTRICLE The left ventricle is normal size. There is normal left ventricular wall thickness. The left ventricular systolic function is normal and the ejection fraction is within normal range. The Ejection Fraction is 55-60%. There is normal LV segmental wall motion. Transmitral Doppler flow pattern is Grade I- abnormal relaxation pattern. RIGHT VENTRICLE The right ventricle is normal size. The right ventricular systolic function is normal. ATRIA The left atrium size is normal. The right atrium size is normal. The interatrial septum is intact with no evidence for an atrial septal defect or patent foramen ovale as noted on 2-D or Doppler imaging. AORTIC VALVE The aortic valve is calcified but opens well. Doppler and Color Flow revealed no significant aortic regurgitation. There is no significant aortic valvular stenosis. MITRAL VALVE The mitral valve is normal in structure and function. There is no evidence of mitral valve prolapse. There is no mitral valve stenosis. Doppler and Color-flow revealed mild mitral regurgitation. TRICUSPID VALVE The tricuspid valve is normal in structure and function. Doppler and Color Flow revealed mild tricuspid regurgitation. The PA pressure was estimated at 29 mmHg. There is no tricuspid valve stenosis. PULMONIC VALVE The pulmonic valve is not well visualized. Doppler and Color Flow revealed trace pulmonic valvular regurgitation. There is no pulmonic valvular stenosis. GREAT VESSELS The aortic root is normal in size. The ascending aorta is normal in size. The IVC is normal in size and collapses >50% with inspiration. PERICARDIAL EFFUSION There is no evidence of significant pericardial effusion. Critical Notification Critical Value: No <Conclusion> The left ventricle is normal size. The left ventricular systolic function is normal and the ejection fraction is within normal range. The Ejection Fraction is 55-60%. The interatrial septum is intact with no evidence for an atrial septal defect or patent foramen ovale as noted on 2-D or Doppler imaging. Doppler and Color Flow revealed no significant aortic regurgitation. There is no significant aortic valvular stenosis. Doppler and Color-flow revealed mild mitral regurgitation. Doppler and Color Flow revealed mild tricuspid regurgitation. The PA pressure was estimated at 29 mmHg. Discharge Information Condition at Discharge: Improved Follow Up: Weeks Disposition/Orders: D/C to Home Scheduled Amitriptyline Hcl (Amitriptyline Hcl) 50 Mg Tablet, 50 MG PO QHS, (Reported) Entered as Reported by: Rosemary Seay on 01/11/14812 Last Action: Converted on 11/05/192132 by Ronny Mix Aspirin (Aspirin Ec) 325 Mg Tablet., 81 MG PO DAILYWBKFT for antiplatelet for 30 Days, #30 Prescribed by: NAVA SHABAZZ MD on 11/07/19 1408 Losartan Potassium (Losartan Potassium ) 25 Mg Tablet, 25 MG PO DAILY for HYPERTENSION, (Reported) Entered as Reported by: Ronny Mix on 11/05/192122 Last Taken: UNKNOWN on Unknown Date & Time Last Action: Continued on 11/05/192132 by Ronny Mix Scheduled PRN Hydralazine Hcl (Hydralazine Hcl) 20 Mg/1 Ml Vial, 10 MG IJ PRN Q4HRS PRN for htn, (Reported) Entered as Reported by: Ronny Mix on 11/05/192132 Last Taken: UNKNOWN on Unknown Date & Time Last Action: New Order on 11/05/192132 by Ronny Mix Tramadol Hcl (Ultram) 50 Mg Tablet, 50 MG PO Q6H PRN for PAIN, Ref 0 (Reported) Entered as Reported by: Rosemary Seay on 01/11/14 0813 Last Action: Continued on 11/05/192132 by Ronny Mix Justicifation of Admission Dx: Justifications for Admission: Justification of Admission Dx: Yes Stroke - Ischemic: Stroke-Ischemic NAVA SHABAZZ MD Nov 07, 2019 14:11
[2019-11-07 14:37] VITALS: BP 140/89
--- NOTE | 2019-11-07 18:20 | NUR ---
Discharge Note: [facility] Discharge instructions and discharge home medications reviewed with Patient and a copy given. All questions have been answered and understanding verbalized.
[2019-11-08] MEDS ORDERED: ASPIRIN ENTERIC COATED 325 MG TABLET.DR. PO SCH (08:00)
== END 2019-11-07 18:20 | disposition home or self-care (01) | DRG 948 ==
LOC: 2 SOUTH 20:30
PROVIDERS: ADMIT Family Medicine; ATTEND Family Medicine
DX: R53.1 Weakness (principal); I10 Essential (primary) hypertension; F41.9 Anxiety disorder, unspecified; G43.909 Migraine, unspecified, not intractable, without status migrainosus; J32.0 Chronic maxillary sinusitis; K74.60 Unspecified cirrhosis of liver; M32.9 Systemic lupus erythematosus, unspecified; N81.4 Uterovaginal prolapse, unspecified; Z82.3 Family history of stroke
CPT/HCPCS: 36415; 70551; 80053; 80061; 85025; 93306; 93880; J7030; 92526-GN; 92610-GN; 97116-GP; 97530-GP; G0378